=== PATIENT | male | born 1960 ===

== ENCOUNTER 2017-08-29 06:02 | Day surgery (SDC) | payer MEDICAID ==
[2015-09-13 07:26] VITALS: BMI 22.6
[2017-08-29] MEDS ORDERED: Propofol 10 mg/ml Inj (20 ML) ONE (08:04)
[2017-08-29 08:35] VITALS: TEMP 97
[2017-08-29 08:51] VITALS: O2SAT 100
[2017-08-29 09:29] VITALS: BP 118/77; PULSE 65; RESP 14
== END 2017-08-29 09:27 | disposition home or self-care (01) ==
LOC: C.ENDO 06:02
PROVIDERS: ATTEND Internal Medicine Gastroenterology
DX: Z12.11 Encounter for screening for malignant neoplasm of colon (principal); Z86.010 Personal history of colon polyps; K64.1 Second degree hemorrhoids; E11.9 Type 2 diabetes mellitus without complications; I10 Essential (primary) hypertension; I25.10 Atherosclerotic heart disease of native coronary artery without angina pectoris; Z95.5 Presence of coronary angioplasty implant and graft; Z79.84 Long term (current) use of oral hypoglycemic drugs; Z79.899 Other long term (current) drug therapy
CPT/HCPCS: 45378; 82948; J2704